=== PATIENT | male | born 1995 | race American Indian/Alaskan Native ===

== ENCOUNTER 2017-01-30 19:03 | Emergency (ER) | payer OTHER ==
[~2017-01-30] VITALS: Ht 175.3 cm; Wt 79.5 kg
[~2017-01-30 19:03] MED LIST: NO HOME MEDICATIONS
[2017-01-30 19:07] VITALS: TEMP 97.7
[2017-01-30 20:24] LABS: PH 5 (5-8); SQUAMOUS EPITHELIAL None Seen /hpf; URINE APPEARANCE Clear; URINE BACTERIA None Seen /hpf; URINE BILIRUBIN Negative (NEGATIVE); URINE BLOOD Negative (NEGATIVE); URINE COLOR Yellow; URINE GLUCOSE Negative (NEGATIVE); URINE KETONE Negative (NEGATIVE); URINE RBC 0-2 /hpf; URINE UROBILINOGEN Negative (NEGATIVE); URINE WBC 0-2 /hpf
[2017-01-30] MEDS ORDERED: MOTRIN 800800 MG/TAB PO (20:38)
[2017-01-30 21:05] VITALS: BP 135/86; PULSE 58
[2017-01-30 23:13] LABS: CHLAMYDIA/TRACH by PCR Male NOT DETECTED; Neisseria Gon by PCR Male NOT DETECTED
== END 2017-01-30 20:49 | disposition home or self-care (01) ==
LOC: COL.ER 19:03
PROVIDERS: Emergency Medicine
DX: R10.31 Right lower quadrant pain (principal); R10.32 Left lower quadrant pain

== ENCOUNTER 2017-11-09 14:28 | Emergency (ER) | payer BC ==
[~2017-11-09] VITALS: Ht 177.8 cm; Wt 81.8 kg
[~2017-11-09 14:28] MED LIST changes: +MOTRIN 800800 MG/TAB PO
[2017-11-09 14:37] VITALS: BP 143/95; TEMP 98.1
[2017-11-09] MEDS ORDERED: AMOXICILLIN 8751 TAB PO (14:40)
[2017-11-09 15:21] LABS: BASO % 0.4 % (0.0-2.0); EOS # 0.1 (0.0-0.7); EOS % 0.7 % (0-4.0); GRAN # 8.3 (1.4-6.5); GRAN % 81.8 % (42.2-75.2); HEMATOCRIT 49.6 % (42.0-52.0); LYMPH # 1.1 (1.2-3.4); LYMPH % 10.9 % (20.0-51.0); MEAN CELL VOLUME 86 fl (80.0-100.0); MEAN CORPUSCULAR HEMOGLOBIN 29 pg (27.0-31.0); MEAN CORPUSCULAR HGB CONC 34 g/dl (33.0-37.0); MEAN PLATELET VOLUME 9.8 fl (7.4-10.4); MONO # 0.6 (0.1-0.6); MONO % 5.9 % (1.7-9.3); PLATELET COUNT 297 K/mm3 (130-400); RED BLOOD COUNT 5.78 M/mm3 (4.20-5.60)
[2017-11-09 15:39] LABS: ALBUMIN 5.4 gm/dL (3.5-5.0); BILIRUBIN,TOTAL 0.6 mg/dL (0.0-1.0); C-REACTIVE PROTEIN 0.9 mg/dL (0.0-0.9); CALCIUM 9.5 mg/dL (8.4-10.2); CREATININE, serum 1.01 mg/dL (0.66-1.25); POTASSIUM 4.3 mmol/L (3.4-5.0); TOTAL PROTEIN 9.1 gm/dL (6.4-8.2)
[2017-11-09 16:17] LABS: COLLECTION METHOD CLEAN CATCH
[2017-11-09] MEDS ORDERED: CIPRO 500MG TA500 MG PO (16:31)
[2017-11-09] MEDS ORDERED: FLAGYL500 MG PO (16:31)
[2017-11-09] MEDS ORDERED: ZOFRAN 4MG T4 MG/TAB PO (16:31)
[2017-11-09] MEDS ORDERED: NORCO 325 MG-51 TAB PO (16:31)
[2017-11-09 16:49] LABS: PH 5 (5-8); SQUAMOUS EPITHELIAL None Seen /hpf; URINE APPEARANCE Clear; URINE BACTERIA None Seen /hpf; URINE BILIRUBIN Negative (NEGATIVE); URINE BLOOD Negative (NEGATIVE); URINE COLOR Yellow; URINE GLUCOSE Negative (NEGATIVE); URINE KETONE Trace (NEGATIVE); URINE LEUKOCYTE ESTERASE Negative (NEGATIVE); URINE NITRATE Negative (NEGATIVE); URINE PROTEIN(semi-quant) Negative (NEGATIVE); URINE RBC 0-2 /hpf; URINE UROBILINOGEN Negative (NEGATIVE)
[2017-11-09 17:09] VITALS: PULSE 73
== END 2017-11-09 17:09 | disposition home or self-care (01) ==
LOC: COL.ER 14:28
PROVIDERS: Emergency Medicine
DX: K52.9 Noninfective gastroenteritis and colitis, unspecified (principal)
CPT/HCPCS: J2270; J2405; J7030; Q9967